=== PATIENT | female | born 1965 | race Asian ===

== ENCOUNTER 2016-04-27 08:27 | Day surgery (SDC) | payer OTHER ==
--- NOTE | 2016-04-22 14:06 | PREOPHP ---
DATE OF ADMISSION: 04/27/2016 SCHEDULED DATE OF SURGERY: 04/27/2016, by Dr. Ashtyn Chu. TYPE OF CONSULTATION: Preoperative medical consultation. HISTORY OF PRESENT ILLNESS: Ms. Zamarripa is a 51-year-old [place] female who sustained a f all with injury to her left arm, with a proximal right humerus fracture that will require ORIF. At this time, this woman has no major complaints outside of her arm pain. PAST MEDICAL HISTORY: 1. Migraine syndrome. 2. Anxiety disorder. 3. Usual childhood diseases. 4. Remote history of peptic ulcer disease. 5. Status post hemorrhoidectomy. ALLERGIES: 1. SULFA. 2. INTOLERANCE TO IBUPROFEN. CURRENT MEDICATIONS: Paroxetine 10 mg once a day. HABITS: She is a nonsmoker, rare wine, 1 cup of coffee per day. No recreational drugs. SOCIAL HISTORY: She was born in [facility] and raised there. She has lived in the [facility] for 30 years. She has been for 3 years and lives with her spouse. 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 FAMILY HISTORY: Positive for senile coronary artery disease, negative for early onset coronary julianne ry disease, positive for diabetes, positive for hypertension, negative for stroke, positive for asth ma, negative for glaucoma, positive for migraines, negative for colon cancer, negative for breast ca ncer, negative for gastric cancer, negative for anesthesia reactions. REVIEW OF SYSTEMS: HEAD AND EYES: Notable for headaches once or twice a month, and otherwise fully negative. ENT: Negative. RESPIRATORY: Notable for some nocturnal awakening and otherwise negative. CARDIAC: Negative. GASTROINTESTINAL: Fully negative, although she has not had a colonoscopy. HEMATOLOGIC: Negative. UROLOGIC: Negative. GYNECOLOGIC: Negative. Her last menstrual cycle was February of 2015. G0, P0 AB0. MUSCULOSKELETAL: Notable for left arm pain and otherwise negative. NEUROLOGIC: Negative. GENERAL: Without note. PHYSICAL EXAMINATION: VITAL SIGNS: At the time of physical exam she has a height of 5 feet 4 inches, temperature 97.9, we ight 97.5 pounds, blood pressure 110/60, pulse 80, respirations 18. HEENT: NC/AT; PERRL, EOMI, anicteric, fundi are without note; tympanic membranes are without note; oropharynx demonstrates no lesions. NECK: Supple. There is a midline trachea. There is no thyromegaly; pulses are 2+, without bruits. RESPIRATORY: Clear to auscultation and percussion. CARDIAC: Demonstrates no JVD, a regular rate and rhythm, without rubs, murmurs or gallops. ABDOMEN: Soft, nontender, active bowel sounds. No hepatosplenomegaly, no CVA tenderness, no hernia s, no bruits. EXTREMITIES: Demonstrate no clubbing, cyanosis, or edema, although the left arm is in a sling. NEUROLOGIC: Nonfocal. LABORATORY DATA: Sodium 140, potassium 3.8, chloride 96, bicarbonate 28, BUN 12, creatinine 0.4, bl ood sugar 90, white count 4.2, hemoglobin 11.9, hematocrit 40, platelet count 320. Pro time 11.4, w ith an INR of 0.97. PTT is 34 seconds. Urinalysis 1.010, pH is 7, dipstick negative. EKG demonstr ates sinus rhythm at 90, with intervals at 0.18, 0.08, 0.3, and axis of 90 degrees. Normal morpholo gy. Chest x-ray is unremarkable. ASSESSMENT AND PLAN: Preoperative medical consultation prior to elective ORIF of a proximal left hum erus fracture. At this time, I find Ms. Zamarripa to be an acceptable surgical candidate and concur w ith your plans to proceed with surgery. She is at average surgical risk as compared to her age-matc hed peers and should do well using all standard and routine anesthesia precautions. I would recomme nd proceeding with her proposed intervention. Respectfully yours, Dictated By: ANASTACIO GARNER MD, JR/VAIBHAV Conf#: [id number] DID#: [id number] CC: ASHTYN CHU MD;*EndCC*
[2016-04-26 15:00] VITALS: BMI 17.0
[2016-04-27] VITALS (31 sets, daily range): BP systolic 93–141; BP diastolic 53–72; PULSE 70–92; RESP 12–20; Ht 162.6 cm; Wt 44.4 kg
[~2016-04-27] VITALS: Ht 162.6 cm; Wt 44.4 kg
[2016-04-27] MEDS ORDERED: DOXY100T20 PO (09:14)
[2016-04-27] MEDS ORDERED: PARO20TA58 PO (09:14)
[2016-04-27] MEDS ORDERED: HYDR-902 PO (09:16)
[2016-04-27] MEDS ORDERED: GABAPENTIN 300 MG CAP PO ONE (10:00)
[2016-04-27] MEDS ORDERED: oxyCODONE (CR) 10 MG TAB [oxyCONTIN] PO ONE (10:00)
[2016-04-27] MEDS ORDERED: DEXAMETHASONE 1 MG TAB PO ONE (10:00)
[2016-04-27] MEDS ORDERED: CEFAZOLIN 2 GM/50 ML (PMX) 50 ML IVPB ONE (10:00)
[2016-04-27] MEDS ORDERED: traMADol 50 MG TAB PO ONE (10:00)
[2016-04-27] MEDS ORDERED: TRANEXAMIC ACID 1,000 MG in SOD CHLORIDE 0.9% 100 ML IVPB ONE (10:00)
[2016-04-27] MEDS ORDERED: BUPIVACAINE 0.5% (SDV) 30 ML, morphine SULFATE (PF) 8 MG, EPINEPHrine 0.3 MG, KETOROLAC... IRR SCH ×7 (10:00)
[2016-04-27] MEDS ORDERED: LIDOCAINE 100 MG SYRINGE ONE (10:03)
[2016-04-27] MEDS ORDERED: PROPOFOL 100 ML ONE (10:03)
[2016-04-27] MEDS ORDERED: MIDAZOLAM 1 MG/ML 2 ML INJ ONE (10:03)
[2016-04-27] MEDS ORDERED: DEXAMETHASONE 4 MG/ML 1 ML INJ ONE (10:03)
[2016-04-27] MEDS ORDERED: ONDANSETRON 4 MG INJ ONE (10:03)
[2016-04-27] MEDS ORDERED: CEFAZOLIN 1 GM INJ ONE (10:03)
[2016-04-27] MEDS ORDERED: GLYCOPYRROLATE 0.4 MG INJ ONE (10:03)
[2016-04-27] MEDS ORDERED: FENTAnyl 50 MCG/ML VIAL ONE ×2 (10:03→12:11)
[2016-04-27] MEDS ORDERED: NEOSTIGMINE 3 MG/3 ML SYRINGE ONE (10:03)
[2016-04-27] MEDS ORDERED: ROCURONIUM 50 MG INJ ONE (10:03)
[2016-04-27] MEDS ORDERED: ROPIVACAINE 0.5 % 30 ML VIAL ONE (10:04)
[2016-04-27] MEDS ORDERED: BUPIVACAINE 0.5% (SDV) 30 ML, morphine SULFATE (PF) 8 MG, EPINEPHrine 0.3 MG, CLONIDINE... IRR SCH ×6 (11:00)
[2016-04-27] MEDS ORDERED: POLYMYXIN/BACITRACIN 1L IRRIG ONE (11:27)
[2016-04-27] MEDS ORDERED: CA CHLORIDE 10% 10 ML SYRINGE ONE (11:27)
[2016-04-27] MEDS ORDERED: THROMBIN 5000 UNIT VIAL ONE (11:27)
[2016-04-27] MEDS ORDERED: BUPIVACAINE 0.5%/EPI (SDV) 30 ML INJ ONE (11:27)
[2016-04-27] MEDS ORDERED: HYDROmorphONE (0.2 MG/ML) 10ML SYG IV PRN ×3 (12:30)
[2016-04-27] MEDS ORDERED: LABETALOL HCL 20MG INJ IV PRN (12:30)
[2016-04-27] MEDS ORDERED: hydrALAzine 20 MG INJ IV PRN (12:30)
[2016-04-27] MEDS ORDERED: TRIMETHOBENZAMIDE 100 MG/ML VIAL IM PRN (12:30)
[2016-04-27] MEDS ORDERED: EPHEDrine SULFATE 50 MG/5 ML SYG IV PRN (12:30)
[2016-04-27] MEDS ORDERED: FENTAnyl 50 MCG/ML VIAL IV PRN ×3 (12:30)
[2016-04-27] MEDS ORDERED: DIPHENHYDRAMINE 50 MG INJ IV PRN ×2 (12:30→13:30)
[2016-04-27] MEDS ORDERED: MIDAZOLAM 1 MG/ML 2 ML INJ IV PRN (12:30)
[2016-04-27] MEDS ORDERED: ONDANSETRON 4 MG INJ IV PRN ×2 (12:30→13:30)
[2016-04-27] MEDS ORDERED: MEPERIDINE 25 MG INJ IV PRN (12:30)
[2016-04-27] MEDS ORDERED: ACETAMINOPHEN 500 MG TAB PO PRN (13:30)
[2016-04-27] MEDS ORDERED: ZOLPIDEM 5 MG TAB PO PRN (13:30)
[2016-04-27] MEDS ORDERED: morphine 4 MG/ML VIAL IV PRN (13:30)
[2016-04-27] MEDS ORDERED: morphine 2 MG INJ IV PRN (13:30)
[2016-04-27] MEDS ORDERED: TRANEXAMIC ACID 1,000 MG in SOD CHLORIDE 0.9% 100 ML IV ONE (13:30)
[2016-04-27] MEDS ORDERED: MAGNESIUM HYDROXIDE 30ML CUP PO PRN (13:30)
[2016-04-27] MEDS ORDERED: CEFAZOLIN 1 GM/50 ML (PMX) 50 ML IVPB SCH (13:30)
[2016-04-27] MEDS ORDERED: OXYCODONE/ACETAMINOPHEN (5/325) TAB PO PRN (13:30)
--- NOTE | 2016-04-27 13:43 | OPR ---
DATE OF OPERATION: 04/27/2016 PREOPERATIVE DIAGNOSIS: Displaced left proximal humerus fracture. POSTOPERATIVE DIAGNOSIS: Displaced left proximal humerus fracture. PROCEDURE PERFORMED: Left shoulder proximal humerus fracture open reduction internal fixation. ATTENDING SURGEON: Ashtyn Lynne MD CRYOGENICS ENGINEER: Evangelista Monroe MD The assistant professor of radiology surgeon, Evagnelista Monroe MD, was asked to be present at my request as a result of the compl exity associated with this procedure, including positioning of the extremity, manipulation and prote ction of the neurovascular structures. In my opinion, the assistance offered by a surgical scrub [facility] is insufficient and Dr. Monroe should be compensated for his time. PROCEDURE IN DETAIL: Following administration of general endotracheal anesthesia supplemented with scalene block, the patient was placed in the beach chair position. The left upper extremity was pre pped and draped in usual sterile fashion. An extended deltopectoral incision was then undertaken ex posing the subdeltoid plane. Significant fracture hematoma was evacuated. The bicipital groove was identified and entered. The biceps tendon was tenodesed to the bicipital groove. Subsequently, th e intra-articular portion of the biceps was then tenodesed to the bicipital groove. Solid fixation was obtained. The intra-articular portion was resected. The fracture was then evaluated. The fragment of the greater tuberosity was then reduced to the hea d fracture, followed by longitudinal alignment of the shaft and proximal fragment with a butterfly f ragment that was reduced for essentially to line up the fracture in its proper longitudinal alignmen t as well as its proper length. This was preliminarily fixated with a K wire. A Synthes plate was then fashioned along the anterolateral aspect, taking care to put the plate below the humeral head r otation. The fracture was then fixated first with 3 distal screws with solid fixation. These were cortical locking screws ,followed by multiple locking screws in the humeral head and metaphyseal por tion. Very solid fixation was obtained throughout. The arm was taken through a full range of motio n with no evident fracture motion at this point. The preliminary K wire was also removed and no fra cture motion was noted at the butterfly fragment. The area was then thoroughly irrigated, closed in layers followed by a Prineo dressing with solid cl osure. A sling was then applied. The patient was then awakened and transported to recovery in stab le condition, tolerating the procedure well. Estimated blood loss for this procedure was 100 mL. P ostoperative radiographs will be obtained in the recovery room. Dictated By: ASHTYN QUINTERO/VAIBHAV Conf#: [id number] DID#: [id number]
--- NOTE | 2016-04-27 14:10 | PN ---
Date/Time of Note Date/Time of Note DATE: 04/27/16 TIME: 14:07 Assessment/Plan VTE Prophylaxis VTE Prophylaxis Intervention: other Lines/Catheters IV Catheter Type (from Nrs): Peripheral IV Assessment/Plan Problems: (1) Fracture, humerus, head Status: Acute Comment: Patient is now status post formalized ORIF of a displaced humerus head fracture on the left-hand side. She has gone through surgery relatively well. At this time from the anesthesia of the digital block she is not moving the left hand. Will follow her up in as we go through the day and in the morning. Dr. Lynne is actively involved Qualifiers: Encounter type: initial encounter Fracture type: closed Laterality: left Qualified Code: S42.292A - Fracture, humerus, head, left, closed, initial encounter Subjective 24 Hr Interval Summary Free Text/Dictation Patient is seen in postanesthesia care unitrecovery room bed 3. Constitutional: no complaints (Denies fever chills or sweats) Eyes: no complaints ENT: no complaints Respiratory: no complaints (No cough no dyspnea) Cardiovascular: no complaints (No chest pain no palpitation) Gastrointestinal: no complaints (No nausea no vomiting) Neurologic: other (Reports some difficulty moving the left hand right now but she is able to feel when I touch reportedly) Exam/Review of Systems Vital Signs Vitals Vital Signs Date Time Temp Pulse Resp B/P Pulse Ox O2 Delivery O2 Flow Rate FiO2 04/27/16 13:48 98.4 04/27/16 10:11 77 16 93/61 100 Room Air Exam Constitutional: alert, oriented Neck: non-tender, supple Respiratory: clear to auscultation, normal air movement Cardiovascular: nl pulses, regular rate and rhythm Gastrointestinal: nl liver, spleen, non-tender, soft Neurological: other (Patient reports that she can feel touch and monofilament to the left distal digits. She is not moving them at this time. The right hand moves well.) Medications Medications Current Medications Paroxetine HCl 20 mg 20 mg DAILY PO ; Start 04/28/16 at 09:00 Cefazolin Sodium (Ancef 1 Gm/50 ml (Pmx)) 50 ml @ 100 mls/hr Q8H IVPB ; Start 04/27/16 at 13:30; Stop 04/28/16 at 05:59 Senna/Docusate Sodium (Senokot-S) 1 tab BID PO ; Start 04/27/16 at 21:00 Simethicone (Mylicon) 80 mg TID PRN PO DISTENSION/GAS/BLOATING; Start 04/27/16 at 13:30 Magnesium Hydroxide (Milk Of Mag) 30 ml BID PRN PO CONSTIPATION; Start at 13:30 Acetaminophen (Tylenol Tab) 1,000 mg Q4H PRN PO TEMP GREATER THAN 100.4F; Start 04/27/16 at 13:30 Dexamethasone (Decadron) 2 mg Q6 PO ; Start 04/27/16 at 18:00; Stop 04/28/16 at 12:01 Gabapentin (Neurontin) 300 mg HS PO ; Start 04/27/16 at 21:00 Oxycodone/ Acetaminophen (Percocet (5/ 325)) 1 tab Q4H PRN PO PAIN LEVEL 1-5; Start 04/27/16 at 13:30 Oxycodone/ Acetaminophen (Percocet (5/ 325)) 2 tab Q4H PRN PO PAIN LEVEL 6-10; Start 04/27/16 at 13:30 Morphine Sulfate (morphine) 2 mg Q2H PRN IV PAIN LEVEL 1-5; Start 04/27/16 at 13:30 Morphine Sulfate (morphine) 4 mg Q4H PRN IV PAIN LEVEL 6-10; Start 04/27/16 at 13:30 Ondansetron HCl (Zofran Inj) 4 mg Q6H PRN IV NAUSEA AND/OR VOMITING; Start at 13:30 Diphenhydramine HCl (Benadryl) 25 mg Q6H PRN IV PRURITUS; Start 04/27/16 at 13: 30 ANASTACIO GARNER MD Apr 27, 2016 14:10
--- NOTE | 2016-04-27 14:29 | RADRPT ---
PROCEDURE: CR left shoulder CLINICAL INDICATION: Shoulder pain TECHNIQUE: 2 views performed COMPARISON: No comparison available. FINDINGS: There is normal mineralization . ORIF of surgical neck fracture with a lateral plate and multiple sc rews .The glenohumeral and acromioclavicular joints are unremarkable. The soft tissues are unremarka ble. IMPRESSION: ORIF of surgical neck fracture with a lateral plate and multiple screws. Anatomic alignment RPTAT: DB .Ricci Terrazas MD, MD Date Time Electronically viewed and signed by .Ricci Terrazas MD, on 04/27/2016 14:29 .B/
[2016-04-27] MEDS: DEXAMETHASONE 2 MG TAB PO SCH (20:34)
[2016-04-27] MEDS: CEFAZOLIN 1 GM/50 ML (PMX) 50 ML IVPB SCH (20:34)
[2016-04-27] MEDS: SENNA/DOCUSATE NA (8.6MG/50MG) TAB PO SCH (20:34)
[2016-04-27] MEDS ORDERED: GABAPENTIN 300 MG CAP PO SCH (21:00)
[2016-04-28] MEDS: DEXAMETHASONE 2 MG TAB PO SCH ×3 (00:45→11:27)
[2016-04-28 00:47] VITALS: BP 90/53; RESP 20
[2016-04-28] MEDS: OXYCODONE/ACETAMINOPHEN (5/325) TAB PO PRN ×3 (03:17→12:02)
[2016-04-28] MEDS: CEFAZOLIN 1 GM/50 ML (PMX) 50 ML IVPB SCH ×2 (04:34→11:27)
[2016-04-28 06:00] VITALS: BP 105/57; PULSE 72; RESP 18
--- NOTE | 2016-04-28 06:49 | PDOCDIS ---
Discharge Instructions DIAGNOSIS Discharge Diagnosis: Left shoulder fracture CONDITION Patient Condition: Good HOME CARE INSTRUCTIONS: Diet Instructions: Regular ACTIVITY: Activity Restrictions: Slowly Increase Activity Keep Limb Elevated Bathing Restrictions: Shower FOLLOW UP/APPOINTMENTS Appointments 2 weeks SCHOOL/WORK RELEASE May return to School/Work with: With Restrictions School/Work Release Comment: 5 pound tabletop usage for 6 weeks ASHTYN CHU MD Apr 28, 2016 06:49
--- NOTE | 2016-04-28 06:50 | PN ---
Date/Time of Note Date/Time of Note DATE: 04/28/16 TIME: 06:50 24 hour Interval Summary Patient is doing very well with no significant pain at this point. Physical examination: Her wound is clean and dry. She is neurologically intact. There is minimal lymphedema. Her passive motion is minimally painful. Impression: Status post ORIF with good function thus far Plan: Discharge home after occupational therapy this morning. Physical Exam Vital Signs Date Time Temp Pulse Resp B/P Pulse Ox O2 Delivery O2 Flow Rate FiO2 04/28/16 06:00 98.4 72 18 105/57 96 04/27/16 18:39 Room Air 04/27/16 15:45 2.0 Intake and Output 04/27/16 04/27/16 04/28/16 15:00 23:00 07:00 Intake Total 1400 ml 250 ml 600 ml Output Total 300 ml Balance 1100 ml 250 ml 600 ml VTE Prophylaxis VTE Prophylaxis Intervention: anti-embolic stocking Lines/Catheters IV Catheter Type: Saline Lock Lopez in Place: No Medications Medications Home Meds Reported Medications Hydrocodone/Acetaminophen ([place] 10-325 Tablet) 1 Each Tablet, 1 EACH PO Q4H WHILE AWAKE Y for PAIN, TAB 04/27/16 Doxycycline Hyclate* (Doxycycline Hyclate*) 100 Mg Tablet., 100 MG PO BID, TAB 04/27/16 Paroxetine Hcl* (Paxil*) 20 Mg Tablet, 20 MG PO DAILY, TAB 04/27/16 ASHTYN CHU MD Apr 28, 2016 06:50
--- NOTE | 2016-04-28 06:51 | DS ---
Date/Time of Note Date/Time of Note DATE: 04/28/16 TIME: 06:51 Discharge Summary Admission/Discharge Info Admit Date/Time 04/27/2016 Discharge Date/Time 04/28/2016 Final Diagnosis Proximal humerus fracture, left Patient Condition: Good Procedures Left shoulder open reduction with internal fixation Hx of Present Illness Fracture following fall at work Hospital Course Patient was admitted, underwent surgery, was observed overnight and went home the next day. Home Meds Reported Medications Hydrocodone/Acetaminophen ([place] 10-325 Tablet) 1 Each Tablet, 1 EACH PO Q4H WHILE AWAKE Y for PAIN, TAB 04/27/16 Doxycycline Hyclate* (Doxycycline Hyclate*) 100 Mg Tablet.dr, 100 MG PO BID, TAB 04/27/16 Paroxetine Hcl* (Paxil*) 20 Mg Tablet, 20 MG PO DAILY, TAB 04/27/16 ASHTYN CHU MD Apr 28, 2016 06:51
[2016-04-28] MEDS: SENNA/DOCUSATE NA (8.6MG/50MG) TAB PO SCH (08:08)
[2016-04-28 08:58] VITALS: BP 89/54; RESP 18
[2016-04-28] MEDS ORDERED: PAROXETINE 20 MG TAB PO SCH (09:00)
== END 2016-04-28 12:15 | disposition home or self-care (01) ==
LOC: SDS 08:27 → EDSTATUS 12:00 → MS1 18:25 → SDS 04-28 12:15
PROVIDERS: ATTEND Orthopaedic Surgery
DX: S42.292D Other displaced fracture of upper end of left humerus, subsequent encounter for fracture with routine healing (principal); X58.XXXD Exposure to other specified factors, subsequent encounter; F32.9 Major depressive disorder, single episode, unspecified
CPT/HCPCS: 23615; 73030; 84703; 86999; 97167; C1713; J0171; J0690; J0735; J1100; J1885; J2250; J2274; J2405; J2710; J2795; J3010; J3370; J2001